=== PATIENT | female | born 1970 | race Caucasian/White ===

== ENCOUNTER 2018-01-07 08:17 | Emergency (ER) | payer SELFPAY ==
[2018-01-07 08:22] VITALS: BP 150/84; PULSE 79; TEMP 98.3; BMI 23.6
[2018-01-07] MEDS ORDERED: KETOROLAC TROMETHAMINE 60 MG/2 ML VIAL IM ONE (08:58)
--- NOTE | 2018-01-07 08:58 | PDOC ---
History of Present Illness - General Chief Complaint: Pain, Acute Stated Complaint: RT SHOULDER PAIN Time Seen by Provider: 01/07/18 08:49 History Source: Patient - History of Present Illness Associated Symptoms: denies: chest pain, cough, fever/chills Past History - Travel Close contact w/someone who was outside of country & ill: No - Past Medical History Allergies/Adverse Reactions: Allergies Allergy/AdvReac Type Severity Reaction Status Date / Time morphine Allergy Intermediate Verified 01/07/18 08:22 Home Medications: Ambulatory Orders Naproxen 375 mg PO BID 10 Days #30 tablet 01/07/18 Asthma: No Cancer: No COPD: No Diabetes: No Seizures: No - Surgical History Appendectomy: Yes - Immunization History Immunization Up to Date: Yes - Suicide/Smoking/Psychosocial Hx Smoking Status: No Smoking History: Never smoked Number of Cigarettes Smoked Daily: 0 Cigars Per Day: 0 Information on smoking cessation initiated: No Hx Alcohol Use: No Drug/Substance Use Hx: No Substance Use Type: None Review of Systems - Review of Systems Able to Perform ROS?: No Is the patient limited Latvian proficient: No Constitutional: No: Chills, Fever Respiratory: No: Orthopnea, Shortness of Breath Cardiac (ROS): No: Chest Pain Musculoskeletal: Yes: Joint Pain, Other (R shoulder pain). No: Back Pain, Gout , Muscle Pain *Physical Exam - Vital Signs Last Vital Signs Temp Pulse Resp BP Pulse Ox 98.3 F 79 18 150/84 98 01/07/18 08:19 01/07/18 08:19 01/07/18 08:19 01/07/18 08:19 01/07/18 08:19 - Physical Exam General Appearance: Yes: Nourished Respiratory/Chest: positive: Lungs Clear, Normal Breath Sounds Cardiovascular: positive: Regular Rate, S1, S2 Musculoskeletal: positive: Normal Inspection Extremity: positive: Normal Capillary Refill, Normal Inspection, Normal Range of Motion, Other (R shoulder FROM, distal pulse intact) Neurologic: positive: edging machine catcher II-XII NML intact, Fully Oriented, Alert Medical Decision Making - Medical Decision Making 01/07/18 09:00 47y/o F with no prior med hx p/w atraumatic R shoulder pain with X 1wk, R hand dominant, she denies f/c, CP, weakness or SOB nl shoulder exam toradol for pain f/u with PCP 01/07/18 09:16 elevated BP noted, pt denies hx of HTN, CP or CHRISTIAN advised to f/u PCP for BP reading low sodium diet and exercise discussed. *DC/Admit/Observation/Transfer Diagnosis at time of Disposition: Elevated blood pressure reading Shoulder pain, right Qualifiers: Chronicity: acute Qualified Code(s): M25.511 - Pain in right shoulder - Discharge Dispostion Disposition: HOME Condition at time of disposition: Stable Decision to Admit order: No - Prescriptions Prescriptions: Naproxen 375 mg PO BID 10 Days #30 tablet - Referrals - Patient Instructions Printed Discharge Instructions: DI for Shoulder Pain, High Blood Pressure Additional Instructions: Please follow up with your primary care doctor Take medication as prescribed Your blood pressure was high today, limit salty meals and increase exercise followup with our Primary care doctor for another blood pressure measurement. - Post Discharge Activity
[2018-01-07] MEDS ORDERED: KETOROLAC TROMETHAMINE 60 MG/2 ML VIAL ONE (08:59)
== END 2018-01-07 09:23 | disposition home or self-care (01) ==
LOC: JERFT 08:17
PROC: 3E0233Z Introduction of Anti-inflammatory into Muscle, Percutaneous Approach (ICD-10-PCS; principal; 2018-01-07)
DX: Z01.31 Encounter for examination of blood pressure with abnormal findings (principal); M25.511 Pain in right shoulder
CPT/HCPCS: 99281-25

== ENCOUNTER 2019-01-04 22:02 | Emergency (ER) | payer SELFPAY | END 2019-01-04 23:43 | disposition home or self-care (01) | LOC: JERFT 22:02 → JER 23:43 ==

== ENCOUNTER 2019-01-17 00:36 | Emergency (ER) | payer SELFPAY ==
[2019-01-17 01:15] VITALS: BP 107/69; PULSE 89; TEMP 98.3; BMI 23.0
--- NOTE | 2019-01-17 02:47 | PDOC ---
History of Present Illness - General Chief Complaint: Ear Problem Stated Complaint: PAIN,HEAD/NECK - History of Present Illness Initial Comments: The pt is a 48F w/ no reported PMH, who was recently evaluated and treated for R OM on 01/04/19, who presents for evaluation of persistent symptoms. She reports daily b/l maxillary pressure, with associated b/l global CHRISTIAN, and R>L ear pressure. She endorses nausea 2/2 the pressure and NBNB vomiting x1. She denies fevers/chills, nasal drainage or rhinorrhea, sore throat, cough, chest pain, trouble breathing, diarrhea, dysuria, hematuria. She reports completing the 7 days of abx she was prescribed and has not tried taking anything else for her symptoms and has not made it to her PCP for further evaluation. 01/17/19 02:47 Past History - Past Medical History Allergies/Adverse Reactions: Allergies Allergy/AdvReac Type Severity Reaction Status Date / Time morphine Allergy Intermediate Verified 01/17/19 01:09 Home Medications: Ambulatory Orders Naproxen 375 mg PO BID 10 Days #30 tablet 01/07/18 Amoxicillin - [Amoxicillin 500mg Capsule -] 500 mg PO BID #14 capsule 01/04/19 Ibuprofen [Motrin -] 800 mg PO Q6H #30 tablet 01/04/19 Asthma: No Cancer: No COPD: No Diabetes: No Seizures: No - Surgical History Appendectomy: Yes - Immunization History Immunization Up to Date: Yes - Suicide/Smoking/Psychosocial Hx Smoking Status: No Smoking History: Never smoked Have you smoked in the past 12 months: No Number of Cigarettes Smoked Daily: 0 Cigars Per Day: 0 Information on smoking cessation initiated: No Hx Alcohol Use: No Drug/Substance Use Hx: No Substance Use Type: None Review of Systems - Review of Systems Able to Perform ROS?: Yes Comments:: GENERAL/CONSTITUTIONAL: No fever or chills. No weakness HEAD, EYES, EARS, NOSE AND THROAT: No change in vision. No ear discharge. No sore throat CARDIOVASCULAR: No chest pain or shortness of breath RESPIRATORY: Denies cough, hemoptysis GASTROINTESTINAL: No nausea, vomiting, diarrhea or constipation GENITOURINARY: No dysuria, frequency, or change in urination MUSCULOSKELETAL: No joint or muscle swelling or pain. No neck or back pain SKIN: No rash NEUROLOGIC: No vertigo, loss of consciousness, or change in strength/sensation ENDOCRINE: No increased thirst. No abnormal weight change HEMATOLOGIC/LYMPHATIC: No anemia, easy bleeding, or history of blood clots ALLERGIC/IMMUNOLOGIC: No hives or skin allergy 01/17/19 02:45 *Physical Exam - Vital Signs Last Vital Signs Temp Pulse Resp BP Pulse Ox 98.3 F 89 20 107/69 99 01/17/19 01:10 01/17/19 01:10 01/17/19 01:10 01/17/19 01:10 01/17/19 01:10 - Physical Exam Comments: GENERAL: Awake, alert, and oriented to person/place/time, in no acute distress HEAD: No signs of trauma, normocephalic, atraumatic EYES: PERRLA, EOMI, sclera anicteric, conjunctiva clear ENT: Hearing grossly normal, nares patent, oropharynx clear without exudates. No uvular deviation. Moist mucosa. TMs normal b/l LUNGS: No distress, speaks in full sentences, clear to auscultation bilaterally HEART: Regular rate and rhythm, normal S1 and S2, no murmurs appreciated, peripheral pulses normal and equal bilaterally ABDOMEN: Soft, nontender, normoactive bowel sounds. No guarding, no rebound EXTREMITIES: Normal inspection, Normal range of motion, no edema. No clubbing or cyanosis NEUROLOGICAL: Cranial nerves II through XII grossly intact. Normal speech, normal gait, no focal sensorimotor deficits SKIN: Warm, Dry 01/17/19 02:46 Medical Decision Making - Medical Decision Making The pt is a 48F w/ no reported PMH who was recently treated for R OM who presents for 2 weeks of sinus pressure and associated CHRISTIAN Pt w/o evidence of OM on exam, is afebrile, and non-toxic appearing Ddx includes allergies, viral syndrome, URI, sinus infection, sinus congestion Pt's symptoms likely 2/2 allergies Will give Tylenol, psudofed, and saline spray Plan for D/C w/ PCP f/u Discharge instructions and return precautions given Pt in agreement and verbalized understanding Dispo: home 01/17/19 02:59 *DC/Admit/Observation/Transfer Diagnosis at time of Disposition: Sinus headache, Sinus pressure - Discharge Dispostion Condition at time of disposition: Stable Decision to Admit order: No - Referrals Referrals: [facility] [place] [facility] [place] [Provider Group] - Patient Instructions Printed Discharge Instructions: Sinus Headache Additional Instructions: You were seen in the Emergency Department for evaluation of sinus pressure. You were treated with Tylenol, saline spray, and psudofed. Review the handout provided at discharge. You may continue to use these therapies at home for symptomatic relief. They are available over the counter at most pharmacies. Follow up with your primary care provider or the referral given within a week. Return to the Emergency Department if you develop fevers/chills, chest pain, trouble breathing, persistent vomiting, diarrhea, worsening symptoms, or new/ concerning symptoms. Print Language: MOSOT[place] - Post Discharge Activity
[2019-01-17] MEDS ORDERED: ACETAMINOPHEN 325 MG TABLET (FP) PO ONE (03:01)
[2019-01-17] MEDS ORDERED: SODIUM CHLORIDE FOR INHALATION 3 ML VIAL.NEB IH ONE (03:02)
--- NOTE | 2019-01-17 03:10 | PDOC ---
Attending Attestation - Resident Resident Name: PattiJoss phoenix - ED Attending Attestation I have performed the following: I have examined & evaluated the patient, The case was reviewed & discussed with the resident, I agree w/resident's findings & plan, Exceptions are as noted - HPI HPI: 01/17/19 03:08 48y F no pmhx, recent dx of OM sp abx presents with bilateral maxillary pressure , stuffy nose, and R>L ear presure along with a pressurelike headache. No associated fever, rhinorrhea, cough, vision changes, numbness/tingling/ weakness. On exam well appearing TMs clear b/l no oropharyngeal exudate/erythema mild tenderness to palpation on maxilla bilaterally soft supple neck wo signs of meningismus no signs of sinusitis possible congestion will give sudafed pmd fu - Physicial Exam PE: 01/17/19 04:16 see above - Medical Decision Making 01/17/19 04:16 see above
[2019-01-17] MEDS ORDERED: ACETAMINOPHEN 325 MG TABLET (FP) ONE (03:15)
[2019-01-17] MEDS ORDERED: PSEUDOEPHEDRINE HCL 30 MG TABLET PO ONE (03:15)
[2019-01-17] MEDS ORDERED: PSEUDOEPHEDRINE HCL 60 MG TABLET ONE (03:16)
== END 2019-01-17 04:06 | disposition home or self-care (01) ==
LOC: JER 00:36
DX: G50.1 Atypical facial pain (principal)
CPT/HCPCS: 99281-25

== ENCOUNTER 2020-10-06 08:18 | Emergency (ER) | payer SELFPAY ==
[2020-10-06 08:27] VITALS: BMI 22.8
[2020-10-06 10:07] LABS: BASO % 0.4 % (0-2.0); EOS % 0.7 % (0-4.5); HEMATOCRIT 34.8 % (32.4-45.2); HEMOGLOBIN 11.8 GM/dL (10.7-15.3); LYMPH % 18.5 % (8-40); MCH 30.1 pg (25.7-33.7); MEAN CELL VOLUME 88.6 fl (80-96); MEAN PLT VOLUME 8.2 fl (7.5-11.1); MONO % 4.9 % (3.8-10.2); NEUT % 75.5 % (42.8-82.8); PLATELET COUNT 254 K/MM3 (134-434); RBC 3.92 M/mm3 (3.60-5.2); RDW 13.6 % (11.6-15.6); WHITE BLOOD COUNT 6.9 K/mm3 (4.0-10.0)
[2020-10-06 10:27] LABS: CHLORIDE 111 mmol/L (98-107); POTASSIUM 4.2 mmol/L (3.5-5.1); SODIUM 139 mmol/L (136-145)
[2020-10-06 10:29] LABS: ALBUMIN 3.6 g/dl (3.4-5.0); ANION GAP 4 MMOL/L (8-16); BLOOD UREA NITROGEN 15.6 mg/dL (7-18); CO2 25 mmol/L (21-32); GLUCOSE,RANDOM 97 mg/dL (74-106); LIPASE 58 U/L (73-393)
[2020-10-06 10:32] LABS: CREATININE 0.6 mg/dL (0.55-1.3); SGOT/AST 15 U/L (15-37); SGPT/ALT 24 U/L (13-61)
[2020-10-06 10:34] LABS: BILIRUBIN,TOTAL 0.2 mg/dL (0.2-1); TOT PROT 7.1 g/dl (6.4-8.2)
[2020-10-06 10:35] LABS: ALK PHOS 55 U/L (45-117)
[2020-10-06 11:43] VITALS: BP 94/58; PULSE 66; TEMP 98.2
== END 2020-10-06 11:55 | disposition home or self-care (01) ==
LOC: JER 08:18
DX: R10.13 Epigastric pain (principal)
CPT/HCPCS: 36415; 76705-TC; 80053; 82550; 83690; 84484; 84703; 85025; 93005; 93010; 99285-25

== ENCOUNTER 2023-01-12 17:18 | Emergency (ER) | payer OTHER ==
[2023-01-12 17:26] VITALS: BP 122/65; PULSE 87; RESP 18; TEMP 98.8; BMI 23.6
== END 2023-01-12 20:19 | disposition home or self-care (01) ==
LOC: JERFT 17:18
DX: R09.81 Nasal congestion (principal); R05.9 Cough, unspecified; H93.8X2 Other specified disorders of left ear
CPT/HCPCS: 99283-25